=== PATIENT | male | born 1990 | race African-American/Black ===

== ENCOUNTER 2016-06-14 17:26 | Emergency (ER) | payer OTHER | END 2016-06-14 17:50 | disposition home or self-care (01) | LOC: CFTX 17:26 | DX: L02.415 Cutaneous abscess of right lower limb (principal) | CPT/HCPCS: 10060; 99283 ==

== ENCOUNTER 2016-06-19 09:34 | Emergency (ER) | payer OTHER | END 2016-06-19 09:42 | disposition home or self-care (01) | LOC: CFTX 09:34 | DX: Z48.01 Encounter for change or removal of surgical wound dressing (principal) | CPT/HCPCS: 99281 ==